=== PATIENT | male | born 1940 | race Caucasian/White ===

== ENCOUNTER 2019-08-09 19:41 | Inpatient (IN) | payer OTHER, MEDICARE ==
[~2019-08-09] VITALS: Ht 177.8 cm; Wt 96.3 kg
[2019-08-09] MEDS ORDERED: Xopenex Hfa15 GM INH ×2 (20:43→20:51)
[2019-08-09] MEDS ORDERED: COMBIVENT RESPIM4 GM INH (20:44)
[2019-08-09] MEDS ORDERED: Flovent 220 Ora12 GM INH (20:44)
[2019-08-09] MEDS ORDERED: ATORVASTATIN CA20 MG PO (20:50)
[2019-08-09] MEDS ORDERED: DILTIAZEM 24HR180 M2 PO (20:50)
[2019-08-09] MEDS ORDERED: OMEP20ER PO (20:50)
[2019-08-09 20:51] LABS: BASOPHILS ABSOLUTE AUTO 0.06 K/mm3 (0.00-0.23); BASOPHILS PERCENT AUTO 0 % (0-2); EOSINOPHILS ABSOLUTE AUTO 0.49 K/mm3 (0.00-0.68); EOSINOPHILS PERCENT AUTO 4 % (0-6); Hematocrit 39.8 % (37.0-53.0); Hemoglobin 12.1 g/dL (13.5-17.5); IMMATURE GRAN ABSOLUTE AUTO 0.11 K/mm3 (0.00-0.10); IMMATURE GRAN PERCENT AUTO 1 % (0-1); LYMPHOCYTES ABSOLUTE AUTO 1.47 K/mm3 (0.84-5.20); LYMPHOCYTES PERCENT AUTO 11 % (21-46); MONOCYTES ABSOLUTE AUTO 1.09 K/mm3 (0.16-1.47); MONOCYTES PERCENT AUTO 8 % (4-13); Mean Corpuscular HGB 26.5 pg (26.0-34.0); Mean Corpuscular HGB Conc 30.4 g/dL (31.5-36.5); Mean Corpuscular Volume 87 fL (80-100); Mean Platelet Volume 10.7 fL (9.1-12.4); NEUTROPHILS ABSOLUTE AUTO 10.24 K/mm3 (1.96-9.15); NEUTROPHILS PERCENT AUTO 76 % (41-73); Platelet Count 354 K/mm3 (150-400); RDW Coefficient Variation 14.2 % (11.7-14.2); RDW Standard Deviation 45.2 fL (35.1-46.3); Red Blood Cell Count 4.56 M/mm3 (4.30-5.90); White Blood Cell Count 13.46 K/mm3 (4.00-11.30)
[2019-08-09] MEDS ORDERED: LOSARTAN-HCTZ1 EAC2 PO (20:51)
[2019-08-09] MEDS ORDERED: NEURONTIN300 MG PO (20:51)
[2019-08-09] MEDS ORDERED: Aspirin EC81 MG PO (21:00)
[2019-08-09] MEDS ORDERED: Vitamin D2000 UNIT PO (21:01)
[2019-08-09] MEDS ORDERED: THERA1 EACH PO (21:02)
[2019-08-09] MEDS ORDERED: METF500 PO (21:02)
[2019-08-09 21:07] LABS: International Normalized Ratio 1.24; Prothrombin Time Results 12.9 Sec (9.7-11.5)
[2019-08-09 21:09] LABS: Alanine Aminotransfer (ALT/SGP 28 U/L (12-78); Albumin, Blood 3.7 g/dL (3.4-5.0); Alk Phos 111 U/L (50-136); Anion Gap 7 mmol/L (6-16); Aspartate Aminotrans (AST/SGOT 20 U/L (12-37); Bilirubin, Total 0.6 mg/dL (0.1-1.0); Blood Urea Nitrogen 25 mg/dL (8-24); CHOL/HDL RATIO 2.4; CO2, Blood 26 mmol/L (21-32); Calcium, Blood 9.3 mg/dL (8.5-10.1); Chloride, Blood 110 mmol/L (98-108); Cholesterol 119 mg/dL (50-200); Creatinine, Blood 1.39 mg/dL (0.60-1.20); Globulin, Blood 3.8 g/dL (2.2-4.0); Glomerular Filtration Rate 52 (60-); Glucose, Blood 116 mg/dL (70-99); HDL Cholesterol 49 mg/dL (>39); LDL/HDL RATIO 1.2; Low Density Lipoprotein Chol 59 mg/dL (0-110); Magnesium, Blood 2.1 mg/dL (1.6-2.4); Phosphorus, Blood 3.4 mg/dL (2.5-4.9); Potassium, Blood 3.8 mmol/L (3.5-5.5); Sodium, Blood 143 mmol/L (136-145); Total Protein, Blood 7.5 g/dL (6.4-8.2); Triglycerides 57 mg/dL (30-160); Very Low Density Lipoprot Chol 11 mg/dL (6-32)
[2019-08-09] MEDS ORDERED: ALLO300 PO (23:34)
[2019-08-10 02:38] LABS: BASOPHILS ABSOLUTE AUTO 0.04 K/mm3 (0.00-0.23); BASOPHILS PERCENT AUTO 0 % (0-2); EOSINOPHILS ABSOLUTE AUTO 0.32 K/mm3 (0.00-0.68); EOSINOPHILS PERCENT AUTO 3 % (0-6); Hematocrit 35.4 % (37.0-53.0); IMMATURE GRAN ABSOLUTE AUTO 0.05 K/mm3 (0.00-0.10); IMMATURE GRAN PERCENT AUTO 0 % (0-1); LYMPHOCYTES ABSOLUTE AUTO 1.18 K/mm3 (0.84-5.20); LYMPHOCYTES PERCENT AUTO 10 % (21-46); MONOCYTES ABSOLUTE AUTO 1.05 K/mm3 (0.16-1.47); MONOCYTES PERCENT AUTO 9 % (4-13); Mean Corpuscular HGB Conc 31.1 g/dL (31.5-36.5); Mean Corpuscular Volume 87 fL (80-100); Mean Platelet Volume 10.2 fL (9.1-12.4); NEUTROPHILS ABSOLUTE AUTO 8.84 K/mm3 (1.96-9.15); NEUTROPHILS PERCENT AUTO 77 % (41-73); Platelet Count 279 K/mm3 (150-400); RDW Coefficient Variation 14.1 % (11.7-14.2); RDW Standard Deviation 44.5 fL (35.1-46.3); Red Blood Cell Count 4.07 M/mm3 (4.30-5.90); White Blood Cell Count 11.48 K/mm3 (4.00-11.30)
[2019-08-10 02:58] LABS: Bun/Creatinine Ratio 22.2 (12.0-20.0); Calcium, Blood 8.9 mg/dL (8.5-10.1); Creatinine, Blood 1.26 mg/dL (0.60-1.20); Magnesium, Blood 2.1 mg/dL (1.6-2.4); Troponin I 0.095 ng/mL (0.000-0.040)
--- NOTE | 2019-08-10 05:35 | NUR ---
END OF SHIFT SUMMARY PT TO UNIT FROM ED. CARDIZEM GTT 10 UPON ADMISSION. BP STABLE. HR IN THE 130'S. NOTED TO BE IN AFIB. CARDIZEM GTT TITRATED TO 15. BP HAS REMAINED STABLE. HR HAS DECREASED INTO 100'S. DENIES CP. PT HAS HADF CPAP WHILE SLEEPING, RA WHILE AWAKE. CARDIOLOGY CONSULT CALLED IN. UPON ADMISSION, HEPARIN GTT NOT INFUSING, PHARMACIST GIACOMO VERIFIED THAT IT SHOULD BE OFF DUE TO SUPRATHERAPEUTIC APTT. GIACOMO THEN CALLS LATER, PLACWES ORDER TO CONTINUE THE HEPARIN POST REPEAT BLOOD DRAW, THIS WAS TITRATED TO THE DOSE IT IS RUNNING AT NOW. FINE CRACKLES AUSCULTted in lung bases. PT WAS ORIENTED TO ROOM. HAS USED CALL LIGHT APPROPRIATELY. WILL CONTINUE TO MONITOR UNTIL SHIFT CHANGE.
--- NOTE | 2019-08-10 08:00 | NUR ---
PT QUITE PLEASANT COOP A/O. FROM [place]. DENIES CHEST PT OR PRESSURE OR OVERALL PAIN. ADMITS SOB WITH EXERTION. H/R IRREG, NO MURMER NOTED. PER TELE AFIB 115. LUNGS CLEAR UPER, CRACKLES BASES. ON R/A. RESP EASY, SHALLOW, UNLABORED. BT X4 LAST BM 2 DAYS. VOIDS URINAL AND 1 SBA TO BATHROOM. BED IN LOW POSITION, CALL LITE IN REACH, CALLS APPROP
--- NOTE | 2019-08-10 19:57 | NUR ---
PT VERY PLEASANT TODAY. SOME FAMILY IN TO SEE TODAY. HR HOLDING 100'S HEPARIN DRIP RUNNING PRESCRIBED. CARDIZEM DRIP RUNNING AT 15. NEW IV PLACED TODAY. NO OTHER CONCERNS AT THIS TIME. BED IN LOW POSITION, CALL LITE IN REACH, CALLS APPROP
--- NOTE | 2019-08-10 23:00 | NUR ---
CARDIZEM GTT TURNED OFF AT THIS TIME. PT HR AVG 80'S
--- NOTE | 2019-08-11 00:30 | NUR ---
MENTATION CHANGE AR MANAGER WENT TO ASSIST PT TO RR, REPORTED TO THIS RN THAT PT APPEARED TO BE SLIGHTLY CONFUSED. THIS RN TO ROOM. PT DOES APPEAR AT THIS TIME TO HAVE A SLIGHTLY ALTERED MENTATION FROM START OF SHIFT. PT IS AOX4 BUT STS "I FEEL A LITTLE DRUNK". PT DOES APPEAR DIAPHORETIC. VITALS TAKEN AT THIS TIME W/ PT SITTING ON SIDE OF BED. PT BP NOTED TO BE 74/54. PT LAID BACK IN BED AND BOOSTED W/ STAFF. QA ENGINEER NOTIFIED. EKG TAKEN AT THIS TIME. VITALS RETAKEN AND BP UP TO 93/57. PT ABLE TO ANSWER DIRECT QUESTIONS BUT REPORTS DOES FEEL "OFF". DENIED CP, SOB NOTED RESP 24. CALL TP PROVIDER TO UPDATE ON PT CONDITION.
--- NOTE | 2019-08-11 01:30 | NUR ---
FLUID BOLUS STARTED PER PROVIDER 500ML FLUID BOLUS TO BE STARTED ON PT AT 200ML/HR. PT BP UP AT THIS TIME TO 113/82. SIDE RAILS UP, BLE ELEVATED PT EDUCATED NOT TO GET OUT OF BED AT THIS TIME.
--- NOTE | 2019-08-11 02:50 | NUR ---
FURTHER MENTATION CHANGES PT NOW ONLY ORIENTED TO SELF, VERY DIAPHORETIC IN ROOM. BP 91/54 WITH HR AVERAGING IN THE 40'S AT THIS TIME. CALLS TO BOTH [facility] AND SNAKE CHARMER MADE. ORDERS FOR FURTHER FLUID BOLUS GIVEN. EKG DONE. CBG CHECKED. MEDICATIONS GIVEN. DR KUMAR TO ROOM TO ASSESS PT.
[2019-08-11 03:03] LABS: PCO2 Arterial 39.4 mmHg (35-45); PO2 Arterial 90.2 mmHg (80-100)
[2019-08-11 03:04] LABS: pH Blood Arterial 7.25 (7.35-7.45)
[2019-08-11 03:45] LABS: Calcium, Ionized (POC) 1.28 mmol/L (1.10-1.46); Chloride (POC) 116 mmol/L (98-108); Creatinine (POC) 1.7 mg/dL (0.8-1.3); Glucose (ISTAT POC) 136 mg/dL (70-99); Hemoglobin (POC) 9.5 g/dL (13.5-17.5); PCO2 Arterial 81.2 mmHg (35-45); Potassium (POC) 3.1 mmol/L (3.5-5.5); Sodium (POC) 145 mmol/L (135-148); Total CO2 (POC) 18 mmol/L (21-32); pH Blood Arterial 7.05 (7.35-7.45)
[2019-08-11 03:46] LABS: PO2 Arterial 29.8 mmHg (80-100)
[2019-08-11 03:54] LABS: BASOPHILS ABSOLUTE AUTO 0.05 K/mm3 (0.00-0.23); BASOPHILS PERCENT AUTO 0 % (0-2); EOSINOPHILS ABSOLUTE AUTO 0.03 K/mm3 (0.00-0.68); EOSINOPHILS PERCENT AUTO 0 % (0-6); Hematocrit 38.2 % (37.0-53.0); Hemoglobin 11.2 g/dL (13.5-17.5); IMMATURE GRAN ABSOLUTE AUTO 0.88 K/mm3 (0.00-0.10); IMMATURE GRAN PERCENT AUTO 6 % (0-1); LYMPHOCYTES ABSOLUTE AUTO 2.55 K/mm3 (0.84-5.20); LYMPHOCYTES PERCENT AUTO 17 % (21-46); MONOCYTES ABSOLUTE AUTO 0.71 K/mm3 (0.16-1.47); MONOCYTES PERCENT AUTO 5 % (4-13); Mean Corpuscular HGB 26.9 pg (26.0-34.0); Mean Corpuscular HGB Conc 29.3 g/dL (31.5-36.5); Mean Platelet Volume 10.5 fL (9.1-12.4); NEUTROPHILS ABSOLUTE AUTO 10.97 K/mm3 (1.96-9.15); NEUTROPHILS PERCENT AUTO 72 % (41-73); NRBC Auto 0.7 /100 WBC (0.0-0.2); Platelet Count 161 K/mm3 (150-400); RDW Coefficient Variation 14.3 % (11.7-14.2); RDW Standard Deviation 47.8 fL (35.1-46.3); Red Blood Cell Count 4.16 M/mm3 (4.30-5.90); White Blood Cell Count 15.19 K/mm3 (4.00-11.30)
[2019-08-11 03:56] LABS: Mean Corpuscular Volume 92 fL (80-100)
[2019-08-11 04:12] LABS: Magnesium, Blood 2.2 mg/dL (1.6-2.4)
[2019-08-11 04:16] LABS: International Normalized Ratio 1.68
[2019-08-11 04:18] LABS: Bun/Creatinine Ratio 17.1 (12.0-20.0); Calcium, Blood 11.7 mg/dL (8.5-10.1); Creatinine, Blood 1.93 mg/dL (0.60-1.20); Potassium, Blood 3.7 mmol/L (3.5-5.5)
[2019-08-11 04:36] LABS: Troponin I 0.255 ng/mL (0.000-0.040)
--- NOTE | 2019-08-11 04:56 | NUR ---
PT ARRIVED ON UNIT FROM PCU AT 0350 AT 0356 PT WAS MARION WITH HR IN THE 30'S; NO PULSE FELT. CPR INITIATED. SEE CODE SHEET FOR FURTHER INTERVENTIONS. EPINEPHRINE INFUSING AT 20MCG/MIN UPON ARRIVAL TO UNIT. RT BAGGING PT VIA TRACH THAT WAS PLACED BY DR. HENDRIX. IN BETWEEN CONTINUOUS ROUNDS OF CPR AND RETREIVING A PULSE, DR. HENDRIX PLACED A CORDIS TO RIGHT GROIN. AFTER PLACEMENT OF CORDIS WAS CHECKED BY DR. HENDRIX, BLOOD PRODUCT WAS SWITCHED OVER. LEVEL ONE TRANSFUSER INFUSED A TOTAL OF 4 UNITS OF PRBC AND 2 UNITS OF FFP. CPR WAS RESUMED MULITPLE TIMES DUE TO PT BEING IN PEA; TIME OF CALLED AT 0428. DR. HENDRIX, DR. MOSHER, AND DR. BARRETO ALL AT BEDSIDE AT TIME OF .
--- NOTE | 2019-08-11 18:10 | NUR ---
When son arrived, provided bereavement certified travel counselor and prayer to good effect. Listened to stories about pt and affirmed obvious love. Son and DIL tearful, but appropriate.
== END 2019-08-11 04:30 ==
LOC: ER 19:41 → PCU 20:21 → ICUE 08-11 03:45
PROVIDERS: Emergency Medicine; Family Medicine; ADMIT Family Medicine
PROC: 5A12012 Performance of Cardiac Output, Single, Manual (ICD-10-PCS; 2019-08-09)
PROC: 5A09357 Assistance with Respiratory Ventilation, Less than 24 Consecutive Hours, Continuous Positive Airway Pressure (ICD-10-PCS; principal; 2019-08-11)
PROC: 30233K1 Transfusion of Nonautologous Frozen Plasma into Peripheral Vein, Percutaneous Approach (ICD-10-PCS; 2019-08-11)
PROC: 30233N1 Transfusion of Nonautologous Red Blood Cells into Peripheral Vein, Percutaneous Approach (ICD-10-PCS; 2019-08-11)
PROC: 3E033XZ Introduction of Vasopressor into Peripheral Vein, Percutaneous Approach (ICD-10-PCS; 2019-08-11)
PROC: 0BH17EZ Insertion of Endotracheal Airway into Trachea, Via Natural or Artificial Opening (ICD-10-PCS; 2019-08-11)
DX: I48.91 Unspecified atrial fibrillation (principal); I50.33 Acute on chronic diastolic (congestive) heart failure; I21.A1 Myocardial infarction type 2; I13.0 Hypertensive heart and chronic kidney disease with heart failure and stage 1 through stage 4 chronic kidney disease, or unspecified chronic kidney disease; I16.1 Hypertensive emergency; N17.9 Acute kidney failure, unspecified; I48.20 Chronic atrial fibrillation, unspecified; R58 Hemorrhage, not elsewhere classified; Z85.46 Personal history of malignant neoplasm of prostate; Z87.891 Personal history of nicotine dependence; G47.33 Obstructive sleep apnea (adult) (pediatric); E66.01 Morbid (severe) obesity due to excess calories; Z68.30 Body mass index [BMI] 30.0-30.9, adult; I49.3 Ventricular premature depolarization; R00.1 Bradycardia, unspecified; M79.2 Neuralgia and neuritis, unspecified; I27.20 Pulmonary hypertension, unspecified; K59.09 Other constipation; N18.3 Chronic kidney disease, stage 3 (moderate); E87.5 Hyperkalemia; I08.1 Rheumatic disorders of both mitral and tricuspid valves; I46.2 Cardiac arrest due to underlying cardiac condition
CPT/HCPCS: 31500; 31720; 36415; 36430; 36600; 71046; 80047; 80048; 80053; 80061; 82803; 82947; 83735; 83880; 84100; 84443; 84484; 85014; 85025; 85384; 85610; 85730; 86850; 86900; 86901; 86923; 93005; 93010; 93306; 94640; 94660; 94762; 96365; 96366; 96368; 96376; 99285-25; A9270; C1751; C1894; J0461; J1265; J1644; J1940; J7030; J7040; J7799; P9016; P9059